=== PATIENT | female | born 1990 | race Caucasian/White ===

== ENCOUNTER 2017-01-05 20:00 | Inpatient (IN) | payer OTHER ==
[~2017-01-05] VITALS: Ht 167.6 cm; Wt 116.8 kg
[~2017-01-05 20:00] MED LIST: MOTRIN; VICODIN; [UNRECOGNIZED DRUG - REMARK]
[2017-01-05 20:39] VITALS: Ht 167.6 cm; Wt 116.8 kg
[2017-01-05] MEDS ORDERED: LIDOCAINE 1% (MPF) 30 ML INJ INJ PRN (21:00)
[2017-01-05] MEDS ORDERED: CARBOPROST 250 MCG INJ IM PRN (21:00)
[2017-01-05] MEDS ORDERED: OXYTOCIN 30 UNITS/LR 500 ML IV PRN (21:00)
[2017-01-05] MEDS ORDERED: METHYLERGONOVINE 0.2 MG INJ IM PRN (21:00)
[2017-01-05] MEDS ORDERED: LACTATED RINGER'S 1,000 ML IV PRN (21:00)
[2017-01-05] MEDS ORDERED: BUTORPHANOL 2 MG INJ IV PRN (21:00)
[2017-01-05] MEDS ORDERED: IBUPROFEN 600 MG TAB PO PRN (21:00)
[2017-01-05] MEDS ORDERED: MISOPROSTOL 200 MCG TAB PR PRN (21:00)
[2017-01-05 21:13] VITALS: BP 122/72; PULSE 91; RESP 18
[2017-01-05] MEDS ORDERED: AMPICILLIN 2 GM/NS (PMX) 100 ML ONE (21:22)
[2017-01-05] MEDS ORDERED: AMPICILLIN 2 GM/NS (PMX) 100 ML IV ONE (21:30)
[2017-01-05] MEDS ORDERED: DINOPROSTONE 10 MG VAG SUPP VAG ONE (21:30)
[2017-01-05] MEDS: LACTATED RINGER'S 1,000 ML IV SCH (21:39)
[2017-01-05 22:15] LABS: ADD SCAN DIFF NO
[2017-01-05 22:18] LABS: BASOPHILS % 0.2 % (0.0-2.0); EOSINOPHILS # 0.2 10^3/ul (0.0-0.5); EOSINOPHILS % 1.6 % (0.0-7.0); HEMATOCRIT 34.1 % (37.0-47.0); HEMOGLOBIN 11.3 g/dl (12.0-16.0); LYMPHOCYTES # 2.9 10^3/ul (0.8-2.9); LYMPHOCYTES % 22.1 % (15.0-51.0); MEAN CORPUSCULAR HGB CONC 33.1 g/dl (32.0-37.0); MEAN CORPUSCULAR VOLUME 84.4 fl (82.0-101.0); MEAN PLATELET VOLUME 11.1 fl (7.4-10.4); MONOCYTE # 0.9 10^3/ul (0.3-0.9); MONOCYTES % 6.6 % (0.0-11.0); NEUTROPHIL # 9.1 10^3/ul (1.6-7.5); NEUTROPHILS % 68.7 % (39.0-77.0); PLATELET COUNT 329 10^3/UL (140-415); RED BLOOD COUNT 4.04 10^6/ul (4.20-5.40); WHITE BLOOD COUNT 13.2 10^3/ul (4.8-10.8)
[2017-01-05 22:26] LABS: INR 0.86; PROTIME 11.7 Sec (12.2-14.2); PT RATIO 0.9
[2017-01-05 22:27] LABS: PARTIAL THROMBOPLASTIN TIME 30.9 Sec (25.0-35.0)
[2017-01-06] MEDS: AMPICILLIN 1 GM/NS (PMX) 50 ML IV SCH ×6 (02:29→22:41)
[2017-01-06] MEDS: LACTATED RINGER'S 1,000 ML IV SCH ×3 (06:00→22:41)
[2017-01-07] MEDS: OXYTOCIN 30 UNITS/LR 500 ML IV SCH (01:36)
[2017-01-07] MEDS: AMPICILLIN 1 GM/NS (PMX) 50 ML IV SCH ×2 (02:59→06:32)
[2017-01-07] MEDS: LACTATED RINGER'S 1,000 ML IV SCH ×3 (03:30→22:18)
[2017-01-07] MEDS ORDERED: DINOPROSTONE 10 MG VAG SUPP VAG ONE (08:30)
--- NOTE | 2017-01-07 10:44 | HP ---
Date/Time of Note Date/Time of Note DATE: 01/07/17 TIME: 10:34 OB - History Hx of Present Free Text/Dictation Patient was sent to labor and delivery for induction due to oligohydramnios, and small for gestational age, estimated weight 11 percentile, slightly increased S/D ratio of the umbilical artery Doppler with no, reverse diastolic or absent diastolic flow past OB history significant for Anti-M positive in initial labs. Repeat did not confirm no evidence of hydrops x2. care with Dr. Miles MARVIN: January 17, 2017 Patient currently had Cervidil for 12 hours. Cervix is still unfavorable. Chief Complaint: Patient was sent for induction due to oligohydramnios Estimated Due Date: January 17, 2017 : 1 Para: 0 Therapeutic : 0 Care: Good Care Ultrasounds: Other (Ultrasound consistent with small for gestational age. Estimated weight 11 percentile in the last ultrasound. Elevated with no evidence of reverse or abnormal diastolic flow. No evidence of hydrops. SD ratio of the umbilical artery Doppler, no evidence of hydrops no evidence of absent or reversed diastolic flow) Obstetrical Complications: Other (Small for gestational age, antibody screen initially was positive for anti-M repeat showed negative) Past Family/Social History * Past Medical, Surgical, Family and Obstetric Histories reviewed from chart. Blood Type: A+ GBS Status: Positive (In urine) HBsAG: Negative OB Admission Exam Vital Signs Vital Signs Vital Signs Date Time Temp Pulse Resp B/P Pulse Ox O2 Delivery O2 Flow Rate FiO2 01/05/17 21:13 97.5 91 18 122/72 Room Air Physical Exam HEENT: WNL Heart: Rhythm Normal Lungs: Clear Abdomen: WNL Extremities: Normal Cervical Dilatation: Fingertip Effacement: 0% Station: -3 Membranes: Intact Heart Rate: 130's Accelerations: Accelerations Present Decelerations: No Decelerations Varibility: Moderate Contractions on Admission: >10 Minutes Apart Intensity: Mild Last 72 hours Lab Results CBC & BMP 01/05/17 21:20 OB Assessment/Plan Other Assessment: IUP at 38 weeks and 4 days Oligohydramnios Small for gestational age Positive anti-IgM in initial lab repeats were negative 2, No evidence of hydrops Patient was sent by for induction due to oligohydramnios She had currently received 1 dose of Cytotec overnight. Cervix is is still unfavorable. Consider another Cytotec for the next 12 hours. Cytotec was placed inside the vagina continue monitoring closely Anticipate BERNARDO REY MD Jan 07, 2017 10:44
[2017-01-07 22:02] LABS: ADD UMIC NO; URINE BILIRUBIN (Dip) NEGATIVE (NEGATIVE); URINE BLOOD (Dip) NEGATIVE (NEGATIVE); URINE COLOR LT. YELLOW (YELLOW); URINE GLUCOSE (Dip) NEGATIVE (NEGATIVE); URINE KETONES (Dip) NEGATIVE (NEGATIVE); URINE LEUKOCYTE ESTERASE (Dip) NEGATIVE (NEGATIVE); URINE NITRITE (Dip) NEGATIVE (NEGATIVE); URINE TOTAL PROTEIN (Dip) NEGATIVE (NEGATIVE); URINE UROBILINOGEN (Dip) 0.2 E.U./dL (0.1-1.0)
[2017-01-07 22:58] LABS: ADD SCAN DIFF NO
[2017-01-07 23:00] LABS: BASOPHILS % 0.3 % (0.0-2.0); EOSINOPHILS # 0.2 10^3/ul (0.0-0.5); EOSINOPHILS % 1.4 % (0.0-7.0); HEMATOCRIT 32.2 % (37.0-47.0); HEMOGLOBIN 10.8 g/dl (12.0-16.0); LYMPHOCYTES # 2.7 10^3/ul (0.8-2.9); LYMPHOCYTES % 24.7 % (15.0-51.0); MEAN CORPUSCULAR HEMOGLOBIN 28.2 pg (29.0-33.0); MEAN CORPUSCULAR HGB CONC 33.5 g/dl (32.0-37.0); MEAN CORPUSCULAR VOLUME 84.1 fl (82.0-101.0); MEAN PLATELET VOLUME 10.8 fl (7.4-10.4); MONOCYTE # 0.9 10^3/ul (0.3-0.9); MONOCYTES % 7.8 % (0.0-11.0); NEUTROPHIL # 7.1 10^3/ul (1.6-7.5); NEUTROPHILS % 65.1 % (39.0-77.0); PLATELET COUNT 261 10^3/UL (140-415); RED BLOOD COUNT 3.83 10^6/ul (4.20-5.40); RED CELL DISTRIBUTION WIDTH 14.2 % (11.5-14.5)
[2017-01-07] MEDS ORDERED: OXYTOCIN 30 UNITS/LR 500 ML IVPB ONE (23:00)
[2017-01-07] MEDS ORDERED: OXYTOCIN 30 UNITS/LR 500 ML IV SCH (23:00)
[2017-01-07 23:12] LABS: INR 0.92; PROTIME 12.4 Sec (12.2-14.2)
[2017-01-07 23:13] LABS: PARTIAL THROMBOPLASTIN TIME 30.1 Sec (25.0-35.0)
[2017-01-07 23:21] LABS: ALBUMIN 2.9 g/dl (3.3-4.9); ALBUMIN/GLOBULIN RATIO 0.8; CALCIUM 9.5 mg/dl (8.4-10.2); CREATININE 0.51 mg/dl (0.44-1.00); POTASSIUM 3.7 mmol/L (3.5-5.1); TOTAL PROTEIN 6.5 g/dl (6.1-8.1)
[2017-01-08] MEDS: LACTATED RINGER'S 1,000 ML IV SCH ×5 (06:11→20:35)
[2017-01-08] MEDS: OXYTOCIN 30 UNITS/LR 500 ML IV SCH (14:20)
[2017-01-08] MEDS: AMPICILLIN 1 GM/NS (PMX) 50 ML IV SCH ×2 (14:25→18:28)
--- NOTE | 2017-01-08 20:10 | PN ---
Date/Time of Note Date/Time of Note DATE: 01/08/17 TIME: 20:04 OB Subjective Subjective Subjective she does not have complaints. she reports good FM. she denies LOF per vagina or vaginal bleeding. OB Objective Objective Objective VSS, AF Abdomen: soft, gravid, Not tender Cervix: 1 cm 30% -2 OB Assessment/Plan Other Assessment: 38.5 weeks who was seen by [facility] joyce and recommended to have IOL at 39 weeks due to inappropriate growth. she was found to have CORINA 5 cm and was sent to hospital for IOL, she did not make significant change Other plan: options to proceed with c/s Vs. AROM (although increased risk of chorioamnionitis) or repeat CORINA and if CORINA is OK then d/c home d/w pt. she wants to have sono done. she is aware that she needs to return for IOL in 2 days RAMEZ BRIGHT MD Jan 08, 2017 20:10
--- NOTE | 2017-01-08 20:55 | RADRPT ---
PROCEDURE: Obstetrical ultrasound greater than 14 weeks CLINICAL INDICATION: Pelvic pain TECHNIQUE: Real time sonographic imaging of the gravid uterus is performed transabdominally and mu ltiple static vegas scale and Doppler images are submitted for review as are measurements. The image s are reviewed on the PACS. COMPARISON: No relevant exams are available FINDINGS: There is a single living intrauterine gestation in cephalic presentation. The heart beat is estimated at 144 bpm. The measurements are as follows: BPD:8.83 cm HC:31.60 cm AC:33.82 cm FL:7.36 cm Estimated gestational age is 36 weeks 5 days. The estimated date of delivery is 01/31/2017. The estimated weight is 3145 grams. Placenta is fundal left and grade 2. There is no evidence of placenta previa or abruption. The amniotic fluid index is low estimated at 5.7 cm. RPTAT:HJJR IMPRESSION: 1. Single viable intrauterine gestation in cephalic presentation estimated at 36 weeks 5 days with t he estimated date of delivery 01/31/2017. 2. Oligohydramnios is of concern, the amniotic fluid index 5.7 cm. 3. Estimated weight 3145 g. 4. Left fundal placenta without abruption. Physician Moose Date Time Electronically viewed and signed by Physician Moose on 01/08/2017 20:55 /
--- NOTE | 2017-01-08 23:12 | DS ---
Date/Time of Note Date/Time of Note DATE: 01/08/17 TIME: 23:03 Obstetrical Discharge Record Final Diagnosis Final Diagnosis: Term not delivered Other Final Diagnosis who was admitted for IOL. she was seen by joyce for S<D. Perinatologist recommended IOL at 39 weeks. she was admitted at 38.3 weeks due to oligohydramnios. she is s/p 48 hours of Cervidil and 10 hours of Pitocin, her cervix is only one cm, she is very motivated to avoid c/s. she wants to go home and return for IOL in am. repeat CORINA is 5.7 cm, she reports good FM. she denies LOF per vagina or VB. Complications Other (Oligohydramnios and IUGR) Rupture of Membranes: No Condition on Discharge Physical Assessment Voiding: Yes Bowel Movement: Yes Breast: Soft, non-tender, Filling Fundus: Firm Abdomen and Incision: soft, gravid and not tender Calf Tenderness: No Patient Condition: Good Recommendation/Plan Follow-up/Disposition 38 weeks with IUGR and Oligohydramnios plan is to discharge her home and return for IOL in am RAMEZ BRIGHT MD Jan 08, 2017 23:12
[2017-01-09] MEDS ORDERED: PREN1TAB13 PO (15:58)
== END 2017-01-08 22:30 | disposition home or self-care (01) | DRG 782 ==
LOC: L-D 20:25
PROVIDERS: ADMIT Specialist; ATTEND Specialist
PROC: 3E0P7GC Introduction of Other Therapeutic Substance into Female Reproductive, Via Natural or Artificial Opening (ICD-10-PCS; principal; 2017-01-05 20:00)
DX: O41.03X0 Oligohydramnios, third trimester, not applicable or unspecified (principal); O36.5930 Maternal care for other known or suspected poor fetal growth, third trimester, not applicable or unspecified; Z3A.38 38 weeks gestation of pregnancy
CPT/HCPCS: 76815; 80053; 81003; 84560; 85025; 85362; 85384; 85610; 85730; 86592; 86885; 86900; 86901; 87340; J0290; J2590; J7120

== ENCOUNTER 2017-01-09 15:37 | Inpatient (IN) | payer OTHER ==
[~2017-01-09] VITALS: Ht 167.6 cm; Wt 117.3 kg
[2017-01-09 15:50] VITALS: Ht 167.6 cm; Wt 117.3 kg
[2017-01-09 15:55] VITALS: BP 135/81; PULSE 90; RESP 20
[2017-01-09] MEDS ORDERED: PREN1TAB13 PO (15:58)
[2017-01-09] MEDS ORDERED: OXYTOCIN 30 UNITS/LR 500 ML IV PRN (16:00)
[2017-01-09] MEDS ORDERED: METHYLERGONOVINE 0.2 MG INJ IM PRN (16:00)
[2017-01-09] MEDS ORDERED: MISOPROSTOL 200 MCG TAB PR PRN (16:00)
[2017-01-09] MEDS ORDERED: BUTORPHANOL 2 MG INJ IV PRN ×2 (16:00)
[2017-01-09] MEDS ORDERED: OXYTOCIN 30 UNITS/LR 500 ML IV SCH ×2 (16:00)
[2017-01-09] MEDS ORDERED: CARBOPROST 250 MCG INJ IM PRN (16:00)
[2017-01-09] MEDS ORDERED: IBUPROFEN 600 MG TAB PO PRN (16:00)
[2017-01-09] MEDS ORDERED: LIDOCAINE 1% (MPF) 30 ML INJ INJ PRN (16:00)
[2017-01-09] MEDS ORDERED: AMPICILLIN 2 GM/NS (PMX) 100 ML IVPB ONE (16:30)
[2017-01-09 16:33] LABS: ADD SCAN DIFF NO
[2017-01-09 16:37] LABS: BASOPHILS % 0.3 % (0.0-2.0); EOSINOPHILS # 0.2 10^3/ul (0.0-0.5); EOSINOPHILS % 1.4 % (0.0-7.0); HEMATOCRIT 34.8 % (37.0-47.0); HEMOGLOBIN 11.7 g/dl (12.0-16.0); LYMPHOCYTES # 2.3 10^3/ul (0.8-2.9); LYMPHOCYTES % 19.1 % (15.0-51.0); MEAN CORPUSCULAR HEMOGLOBIN 28.3 pg (29.0-33.0); MEAN CORPUSCULAR HGB CONC 33.6 g/dl (32.0-37.0); MEAN CORPUSCULAR VOLUME 84.1 fl (82.0-101.0); MEAN PLATELET VOLUME 11.4 fl (7.4-10.4); MONOCYTE # 0.7 10^3/ul (0.3-0.9); NEUTROPHIL # 8.6 10^3/ul (1.6-7.5); NEUTROPHILS % 72.4 % (39.0-77.0); PLATELET COUNT 302 10^3/UL (140-415); RED BLOOD COUNT 4.14 10^6/ul (4.20-5.40); RED CELL DISTRIBUTION WIDTH 13.9 % (11.5-14.5); WHITE BLOOD COUNT 11.8 10^3/ul (4.8-10.8)
[2017-01-09 16:57] LABS: INR 0.92; PARTIAL THROMBOPLASTIN TIME 30.4 Sec (25.0-35.0); PROTIME 12.4 Sec (12.2-14.2)
[2017-01-09] MEDS ORDERED: DINOPROSTONE 10 MG VAG SUPP VAG ONE (17:00)
[2017-01-09] MEDS ORDERED: LACTATED RINGER'S 1,000 ML IV PRN (18:00)
[2017-01-09] MEDS: AMPICILLIN 1 GM/NS (PMX) 50 ML IVPB SCH (21:24)
[2017-01-10] MEDS: LACTATED RINGER'S 1,000 ML IV SCH ×6 (00:38→18:38)
[2017-01-10] MEDS: AMPICILLIN 1 GM/NS (PMX) 50 ML IVPB SCH ×6 (01:13→20:22)
[2017-01-10] MEDS ORDERED: OXYTOCIN 30 UNITS/LR 500 ML IV SCH (08:30)
--- NOTE | 2017-01-10 08:35 | HP ---
Date/Time of Note Date/Time of Note DATE: 01/10/17 TIME: 08:31 OB - History Hx of Present Free Text/Dictation G1 IUP at 38.6 weeks with IUGR and Oligohydramnios, was recommended by joyce to have IOL. she was previously admitted to L&D and had 48 hours of Cervidil without progress. she was admitted last pm and had Cervidil for 12 hours. she is very motivated to avoid C/S. possible risks of chorioamnionitis with early AROM d/w pt, patient is requesting AROM. Obstetrical Complications: Other (IUGR and Oligo) Medical Complications: None Past Family/Social History * Past Medical, Surgical, Family and Obstetric Histories reviewed from chart. OB Admission Exam Vital Signs Vital Signs Vital Signs Date Time Temp Pulse Resp B/P Pulse Ox O2 Delivery O2 Flow Rate FiO2 01/09/17 15:55 98.5 90 20 135/81 Room Air Physical Exam HEENT: WNL Heart: Rhythm Normal Lungs: Clear, Equal Abdomen: WNL Extremities: Normal Reflexes: Normal Cervical Dilatation: 1cm Effacement: Other (30%) Station: -2 Membranes: Ruptured Amniotic Fluid: Clear Last 72 hours Lab Results CBC & BMP 01/09/17 16:08 OB Assessment/Plan Other Assessment: Admitted for IOL as above RAMEZ BRIGHT MD January 10, 2017 08:35
[2017-01-10] MEDS ORDERED: FENTAnyl 2MCG/ML-ROPIV 0.2% 100 ML ONE (13:42)
[2017-01-10] MEDS ORDERED: NALOXONE (0.4 MG/ML) INJ IV PRN ×2 (16:30→23:30)
[2017-01-10] MEDS ORDERED: FENTAnyl 2MCG/ML-ROPIV 0.2% 100 ML BAG EPI SCH (16:30)
[2017-01-10] MEDS ORDERED: TERBUTALINE 1 ML ONE (16:35)
[2017-01-10] MEDS ORDERED: TERBUTALINE 1 MG/ML INJ SC ONE (17:00)
[2017-01-10] MEDS ORDERED: CEFAZOLIN 2 GM/50 ML (PMX) 50 ML IVPB ONE (17:00)
[2017-01-10] MEDS ORDERED: LACTATED RINGER'S 1,000 ML IV SCH (21:19)
[2017-01-10] MEDS ORDERED: CARBOPROST 250 MCG INJ IM PRN (21:30)
[2017-01-10] MEDS ORDERED: CEFAZOLIN 2 GM/50 ML (PMX) 50 ML IV SCH (21:30)
[2017-01-10] MEDS ORDERED: MISOPROSTOL 200 MCG TAB PR PRN ×2 (21:30→23:30)
[2017-01-10] MEDS ORDERED: METHYLERGONOVINE 0.2 MG INJ IM PRN (21:30)
[2017-01-10] MEDS ORDERED: OXYTOCIN 30 UNITS/LR 500 ML IV PRN (21:30)
[2017-01-10] MEDS ORDERED: LIDOCAINE 2%/EPI 30 ML INJ ONE (22:16)
[2017-01-10] MEDS ORDERED: ONDANSETRON 4 MG INJ ONE (22:30)
[2017-01-10] MEDS ORDERED: DEXAMETHASONE 4 MG/ML 1 ML INJ ONE (22:30)
[2017-01-10] MEDS ORDERED: MIDAZOLAM 1 MG/ML 2 ML INJ ONE (22:48)
[2017-01-10] MEDS ORDERED: morphine SULFATE/PF (10 MG/10 ML) INJ ONE (22:55)
--- NOTE | 2017-01-10 23:21 | OPR ---
Operative Report Planned Procedure Free Text/Dictation DATE OF OPERATION: PREOPERATIVE DIAGNOSES: 1. Term 2. IUGR and Oligohydramnios 3. Failed IOL POSTOPERATIVE DIAGNOSES: 1. Same OPERATION PERFORMED: primary low transverse delivery SURGEON: Baldemar Eagle MD ROPE COILING MACHINE OPERATOR: MS JUDE MD ESTIMATED BLOOD LOSS: 700 mL. COMPLICATIONS: None. The risks, benefits, indications, alternatives of procedure including, but not limited to risk of infection, bleeding, damage to other organs, bowel, bladder, hernia formation, scar formation, possibility of blood transfusions discussed with patient. She was allowed to ask questions. All her questions were answered. Informed consent was obtained. DESCRIPTION OF PROCEDURE: She was taken to the operating room. Spinal anesthesia was induced. She was prepped and draped in the usual sterile fashion. Surgical time out one. Anesthesia was tested to be adequate. With permission from anesthesiologist, a knife was used to make a Pfannenstiel skin incision. The incision was taken down in layers. The fascia was cut, undermined and from the underlying muscle using sharp and blunt dissection. All the bleeders were cauterized. Peritoneum was entered bluntly. A low transverse incision was developed over the uterus. Amniotic fluid was clear and adequate. A viable in vertex presentation was delivered without any difficulty. The cord was clamped and cut, handed to awaiting team. Placenta was then delivered. Uterus was exteriorized, wrapped around a moist lap. Inside uterus was cleaned using a dry lap. All residual membranes were removed. The uterine incision was then closed using #1 Monocryl in 2 layers. The uterus was inserted back inside the abdominal cavity. Irrigation was done carefully. Careful evaluation of the uterine incision revealed no further bleeding. The tubal ligation sites were evaluated carefully. There was no bleeding. The peritoneum and rectus muscles and fascia were evaluated. All bleeders cauterized. Peritoneum was closed using 2-0 Monocryl. At this time, the count was correct. Rectus fascia was reapproximated using 2-0 Monocryl. Rectus fascia was closed using #1 Vicryl. Subcutaneous tissue was cleaned and irrigated. All bleeders cauterized and the skin closed using Insorb. All counts correct. Procedure date January 10, 2017 Anesthesia Type: epidural Procedure Description Under satisfactory [] anesthesia, the patient was prepped and draped and placed in a supine position, tilted to the left. Pfannenstiel incision was made, carried through the subcutaneous tissue. Bleeders brought under control with electrocautery. Fascia incised to the length of the incision. Rectus muscles from the fascia, divided midline. Peritoneum exposed, entered through a transverse incision. Exploration of abdomen revealed gravid uterus. Bladder flap was developed. Transverse incision was made in the lower segment of the uterus. Amniotic sac ruptured. [] amniotic fluid noted. [] Nasal oropharyngeal suction was performed. The baby was handed to the team for immediate attention. The placenta was delivered manually intact. Uterine cavity was cleaned with wet sponge and drainage established. Uterus closed in 2 layers using [] in continuous fashion. Peritoneal cavity irrigated with warm saline. Sponge, needle and instrument count reported to be correct. Abdominal peritoneum closed with [] continuously. Rectus muscle approximated with []. Fascia closed with [], and skin closed with donny. Estimated blood loss []mL. Urine bag contained []mL of urine Post-Procedure Findings: Live Baby [], Apgars [] and [], weight [], position [], [] presentation []cord. Physician Certification I, the undersigned physician, hereby certify that I have discussed the procedure described in this consent form with this patient (or the patient's legal client account representative), including: * The risk and benefits of the procedure; * Any adverse reactions that may reasonably be expected to occur; * Any alternative efficacious methods of treatment which may be medically viable ; * The potential problems that may occur during recuperation; * Potential for blood transfusion and associated risks/benefits; and * Any research or economic interest I may have regarding this treatment. I further certify that the patient/legally responsible person was encouraged to ask question and that all questions were answered. BALDEMAR EAGLE MD January 10, 2017 23:18
--- NOTE | 2017-01-10 23:25 | HP ---
Date/Time of Note Date/Time of Note DATE: 01/10/17 TIME: 23:22 OB - History Hx of Present Free Text/Dictation HISTORY OF PRESENT ILLNESS: The patient with failed IOL desires to proceed with c/s. I discussed with the patient the risks, benefits, indications, and alternatives of procedure including but not limited to risks of infection, bleeding, damage to other organs, bowel, bladder, hernia formation, scar formation, possibility of blood transfusion, possible need for emergency hysterectomy. She was allowed to ask questions. All her questions were answered. Informed consent has been obtained. Ultrasounds: Normal mid trimester US Obstetrical Complications: None Medical Complications: None Past Family/Social History * Past Medical, Surgical, Family and Obstetric Histories reviewed from chart. OB Admission Exam Vital Signs Vital Signs Vital Signs Date Time Temp Pulse Resp B/P Pulse Ox O2 Delivery O2 Flow Rate FiO2 01/09/17 15:55 98.5 90 20 135/81 Room Air Physical Exam HEENT: WNL Heart: Rhythm Normal Lungs: Clear, Equal Abdomen: WNL Extremities: Normal Reflexes: Normal Cervical Dilatation: 1cm Effacement: Other (60%) Station: -2 Last 72 hours Lab Results CBC & BMP 01/09/17 16:08 OB Assessment/Plan Other Assessment: failed IOL Plan: Section RAMEZ BRIGHT MD January 10, 2017 23:25
[2017-01-10 23:27] LABS: AADO2 Cord Arterial 70.5 mmHg; CBA Oxygen Sat 33.6 mmHG; CBA Total Hemglobin 15.5 g/dl; Fraction OxyHgb Cord Arterial 32.9 %; MODE ROOM AIR; Sample Type CBA
[2017-01-10 23:30] LABS: CBV COHb 1.3 %; CBV Oxygen Sat 58.6 mmHG; CBV Total Hemglobin 15.8 g/dl; Cord Blood Venous pO2 24.4 mmHG (15.0-45.0); MODE ROOM AIR; MetHgb Cord Venous 1.5 %; Sample Type CBV
[2017-01-10] MEDS ORDERED: ONDANSETRON 4 MG INJ IV PRN (23:30)
[2017-01-10] MEDS ORDERED: HYDROmorphONE 1 MG/ML SYG IV PRN ×2 (23:30)
[2017-01-10] MEDS ORDERED: NA PHOSPHATE/BIPHOS 133 ML ENEMA PR PRN (23:30)
[2017-01-10] MEDS ORDERED: LANOLIN 7 GM TUBE TOP PRN (23:30)
[2017-01-10] MEDS ORDERED: ZOLPIDEM 5 MG TAB PO PRN (23:30)
[2017-01-10] MEDS ORDERED: DIPHENHYDRAMINE 50 MG INJ IV PRN (23:30)
[2017-01-11 03:00] VITALS: BP 124/48; PULSE 72; RESP 18
[2017-01-11] MEDS: KETOROLAC 30 MG INJ IV PRN ×2 (05:41→15:52)
[2017-01-11] MEDS: LACTATED RINGER'S 1,000 ML IV SCH ×3 (07:06→15:44)
[2017-01-11 08:30] VITALS: BP 115/61; PULSE 69; RESP 18
[2017-01-11 08:32] LABS: ADD SCAN DIFF NO
[2017-01-11 08:43] LABS: BASOPHILS % 0.2 % (0.0-2.0); HEMATOCRIT 31.6 % (37.0-47.0); HEMOGLOBIN 10.4 g/dl (12.0-16.0); LYMPHOCYTES # 2.2 10^3/ul (0.8-2.9); LYMPHOCYTES % 13.8 % (15.0-51.0); MEAN CORPUSCULAR HGB CONC 32.9 g/dl (32.0-37.0); MEAN CORPUSCULAR VOLUME 85.2 fl (82.0-101.0); MEAN PLATELET VOLUME 11.2 fl (7.4-10.4); MONOCYTE # 0.8 10^3/ul (0.3-0.9); MONOCYTES % 4.9 % (0.0-11.0); NEUTROPHIL # 12.6 10^3/ul (1.6-7.5); NEUTROPHILS % 80.5 % (39.0-77.0); PLATELET COUNT 251 10^3/UL (140-415); RED BLOOD COUNT 3.71 10^6/ul (4.20-5.40); RED CELL DISTRIBUTION WIDTH 14.1 % (11.5-14.5); WHITE BLOOD COUNT 15.7 10^3/ul (4.8-10.8)
[2017-01-11] MEDS: MULTIVIT/MIN/FOLATE/IRON/PREN TAB PO SCH (09:21)
[2017-01-11] MEDS: SENNA/DOCUSATE NA (8.6MG/50MG) TAB PO SCH ×2 (09:22→21:15)
[2017-01-11 12:00] VITALS: BP 115/52; PULSE 75; RESP 18
[2017-01-11 16:09] VITALS: BP 129/66; PULSE 68; RESP 18
--- NOTE | 2017-01-11 18:23 | PN ---
Date/Time of Note Date/Time of Note DATE: 01/11/17 TIME: 18:21 OB Subjective Subjective Subjective Patient still is in bed. Not ambulating yet. Has Mckee catheter in. Breast- feeding. Passed flatus. Vaginal bleeding decrease. Denies any other complaint. Pain well controlled with p.o. pain medication. OB Objective Objective Objective General appearance: Alert and oriented 4 patient does not appear to be in any acute distress. Next Baby with mom mom breast-feeding, Breast: No evidence of mastitis, no erythema, no engorgement, no nipple lesion. Abdomen: Soft, obese appropriate tenderness in the incision., No evidence of erythema around the wound, no drainage, Wound: Clean dry and intact Extremities: No calf tenderness, no click, no edema, no cords palpable Hematology - 72 Hrs Test 01/09/17 16:08 01/11/17 07:55 White Blood Count 11.810^3/ul (4.8-10.8) H 15.710^3/ul (4.8-10.8) #H Red Blood Count 4.1410^6/ul (4.20-5.40) L 3.7110^6/ul (4.20-5.40) L Hemoglobin 11.7g/dl (12.0-16.0) L 10.4g/dl (12.0-16.0) L Hematocrit 34.8% (37.0-47.0) L 31.6% (37.0-47.0) L Mean Corpuscular Volume 84.1fl (82.0-101.0) 85.2fl (82.0-101.0) Mean Corpuscular Hemoglobin 28.3pg (29.0-33.0) L 28.0pg (29.0-33.0) L Mean Corpuscular Hemoglobin Concent 33.6g/dl (32.0-37.0) 32.9g/dl (32.0-37.0) Red Cell Distribution Width 13.9% (11.5-14.5) 14.1% (11.5-14.5) Platelet Count 00454^3/UL (140-415) 68333^3/UL (140-415) Mean Platelet Volume 11.4fl (7.4-10.4) H 11.2fl (7.4-10.4) H Neutrophils % 72.4% (39.0-77.0) 80.5% (39.0-77.0) H Lymphocytes % 19.1% (15.0-51.0) 13.8% (15.0-51.0) L Monocytes % 6.0% (0.0-11.0) 4.9% (0.0-11.0) Eosinophils % 1.4% (0.0-7.0) 0.0% (0.0-7.0) Basophils % 0.3% (0.0-2.0) 0.2% (0.0-2.0) Nucleated Red Blood Cells % 0.0/100WBC (0.0-0.0) 0.0/100WBC (0.0-0.0) Neutrophils # 8.610^3/ul (1.6-7.5) H 12.610^3/ul (1.6-7.5) H Lymphocytes # 2.310^3/ul (0.8-2.9) 2.210^3/ul (0.8-2.9) Monocytes # 0.710^3/ul (0.3-0.9) 0.810^3/ul (0.3-0.9) Eosinophils # 0.210^3/ul (0.0-0.5) 0.010^3/ul (0.0-0.5) Basophils # 0.010^3/ul (0.0-0.1) 0.010^3/ul (0.0-0.1) Nucleated Red Blood Cells # 0.010^3/ul (0.0-0.0) 0.010^3/ul (0.0-0.0) OB Assessment/Plan Other Assessment: Postoperative day #1 Status post section for oligohydramnios and IUGR Doing well Mild anemia, postop. Asymptomatic Plan: Expectant Management Other plan: Continue routine postop care BERNARDO REY MD January 11, 2017 18:23
[2017-01-11 20:00] VITALS: BP 120/69; PULSE 72; RESP 18
[2017-01-11] MEDS ORDERED: OXYCODONE/ACETAMINOPHEN (5/325) TAB PO PRN (23:30)
[2017-01-12] MEDS: OXYCODONE/ACETAMINOPHEN (5/325) TAB PO PRN ×4 (00:23→16:54)
[2017-01-12 03:35] VITALS: BP 120/64; PULSE 70; RESP 15
[2017-01-12] MEDS: IBUPROFEN 600 MG TAB PO SCH ×5 (05:37→23:45)
[2017-01-12] MEDS: SENNA/DOCUSATE NA (8.6MG/50MG) TAB PO SCH ×2 (08:22→20:40)
[2017-01-12] MEDS: MULTIVIT/MIN/FOLATE/IRON/PREN TAB PO SCH (08:22)
[2017-01-12 08:25] VITALS: BP 123/64; PULSE 74; RESP 18
[2017-01-12 16:00] VITALS: BP 114/72
--- NOTE | 2017-01-12 18:17 | PN ---
Date/Time of Note Date/Time of Note DATE: 01/12/17 TIME: 18:15 OB Subjective Subjective Subjective January 12, 2017 Hospital visit post day 2 Patient is doing well, Ambulatory She is afebrile Abdomen is soft , Fundus is firm Moderate amount of lochia Breasts are soft, Nipples are intact No calf tenderness Breast feeding the new born. Incision is healing well and is clean Current Medications Medications (Trade) Dose Ordered Sig/Jacqui Route PRN Reason Start Time Stop Time Status Last Admin Dose Admin Lactated Ringer's (Lr) 1,000 ml @ 125 mls/hr Q8H IV 01/09/17 15:58 01/10/17 21:39 DC 01/10/17 18:38 Butorphanol Tartrate (Stadol) 1 mg Q2H PRN IV PAIN 01/09/17 16:00 01/11/17 03:22 DC Butorphanol Tartrate (Stadol) 2 mg Q2H PRN IV PAIN 01/09/17 16:00 01/11/17 03:22 DC Lidocaine 30 ml 30 ml ONCE PRN INJ EPISIOTOMY/TEARING 01/09/17 16:00 Oxytocin/Lactated Ringer's 500 ml @ 125 mls/hr ONCE -MAY REPEAT X1 IV 01/09/17 16:00 01/11/17 03:22 DC 01/11/17 02:33 Oxytocin/Lactated Ringer's 500 ml @ 125 mls/hr ONCE IV 01/09/17 16:00 01/10/17 21:39 DC Ibuprofen 600 mg 600 mg ONCE PRN PO Mild Pain (Pain Score 1-3) 01/09/17 16:00 Lactated Ringer's 1,000 ml @ 2,000 mls/hr Q30M PRN IV PRE-EPIDURAL BOLUS 01/09/17 18:00 01/11/17 03:22 DC 01/10/17 13:19 Oxytocin/Lactated Ringer's 500 ml @ 0 mls/hr ONCE PRN IV For Hemorrhage Management 01/09/17 16:00 01/10/17 21:39 DC Methylergonovine Maleate (Methergine) 0.2 mg ONCE PRN IM VAGINAL BLEEDING 01/09/17 16:00 01/10/17 21:39 DC Carboprost Tromethamine (Hemabate) 250 mcg ONCE PRN IM VAGINAL BLEEDING 01/09/17 16:00 01/10/17 21:39 DC Misoprostol 1000 mcg 1,000 mcg ONCE PRN [place] VAGINAL BLEEDING 01/09/17 16:00 01/10/17 21:39 DC Ampicillin 100 ml @ 100 mls/hr ONCE ONCE IVPB 01/09/17 16:30 01/09/17 17:29 DC 01/09/17 16:39 Ampicillin (Ampicillin 1 Gm/ NS (Pmx)) 50 ml @ 100 mls/hr Q4 IVPB 01/09/17 21:00 01/11/17 03:20 DC 01/10/17 20:22 Dinoprostone 10 mg 10 mg ONCE ONCE VAG 01/09/17 17:00 01/09/17 17:01 DC 01/09/17 17:16 Oxytocin/Lactated Ringer's 500 ml @ 0 mls/hr TITRATE IV 01/10/17 08:30 01/11/17 03:21 DC 01/10/17 08:35 Fentanyl/ Ropivacaine 100 ml @ ud STK-MED ONCE .ROUTE 01/10/17 13:42 01/10/17 13:43 DC Naloxone HCl (Narcan) 0.2 mg Q2M PRN IV FOR RESP RATE 8 OR LESS 01/10/17 16:30 Fentanyl/ Ropivacaine 100 ml 100 ml EPIDURAL (PCEA) EPI 01/10/17 16:30 01/11/17 03:21 DC Terbutaline Sulfate 1 ml @ ud STK-MED ONCE .ROUTE 01/10/17 16:35 01/10/17 16:36 DC Cefazolin Sodium/ Dextrose (Ancef 2 Gm/50 ml (Pmx)) 50 ml @ 100 mls/hr ONCE ONCE IVPB 01/10/17 17:00 01/10/17 17:29 DC Terbutaline Sulfate 0.25 mg 0.25 mg ONCE ONCE SC 01/10/17 17:00 01/10/17 17:01 DC 01/10/17 16:52 Lactated Ringer's 1,000 ml @ 125 mls/hr Q8H IV 01/10/17 21:19 01/11/17 03:21 DC Cefazolin Sodium/ Dextrose 50 ml @ 100 mls/hr ONCE IV 01/10/17 21:30 01/11/17 03:21 DC Oxytocin/Lactated Ringer's 500 ml @ 0 mls/hr ONCE PRN IV For Hemorrhage Management 01/10/17 21:30 01/11/17 03:21 DC Methylergonovine Maleate (Methergine) 0.2 mg ONCE PRN IM VAGINAL BLEEDING 01/10/17 21:30 Carboprost Tromethamine (Hemabate) 250 mcg ONCE PRN IM VAGINAL BLEEDING 01/10/17 21:30 01/11/17 03:21 DC Misoprostol (Cytotec) 1,000 mcg ONCE PRN [place] VAGINAL BLEEDING 01/10/17 21:30 Lidocaine/ Epinephrine (Xylocaine 2%/ Epi) 30 ml STK-MED ONCE .ROUTE 01/10/17 22:16 01/10/17 22:17 DC Ondansetron HCl (Zofran Inj) 4 mg STK-MED ONCE .ROUTE 01/10/17 22:30 01/10/17 22:31 DC Dexamethasone (Decadron) 4 mg STK-MED ONCE .ROUTE 01/10/17 22:30 01/10/17 22:31 DC Midazolam HCl (Versed) 2 mg STK-MED ONCE .ROUTE 01/10/17 22:48 01/10/17 22:49 DC Morphine Sulfate 10 mg 10 mg STK-MED ONCE .ROUTE 01/10/17 22:55 01/10/17 22:56 DC Lactated Ringer's (Lr) 1,000 ml @ 125 mls/hr Q8H IV 01/10/17 23:06 01/12/17 06:34 DC 01/11/17 15:44 Oxycodone/ Acetaminophen (Percocet (5/ 325)) 1 tab Q4H PRN PO PAIN LEVEL 4-6 01/11/17 23:30 Oxycodone/ Acetaminophen (Percocet (5/ 325)) 2 tab Q4H PRN PO PAIN LEVEL 7-10 01/11/17 23:30 01/12/17 16:54 Ibuprofen (Motrin) 600 mg Q6 PO 01/12/17 00:00 01/12/17 17:51 Simethicone (Mylicon) 160 mg Q8H PRN PO DISTENSION/GAS/BLOATING 01/10/17 23:30 01/11/17 09:22 Senna/Docusate Sodium (Senokot-S) 1 tab BID PO 01/11/17 09:00 01/12/17 08:22 Sodium Biphosphate/ Sodium Phosphate (Fleet Enema) 133 ml DAILY PRN [place] CONSTIPATION 01/10/17 23:30 Lanolin (Vaq-O-Zplpwc) 1 applic BEDSIDE MEDICATION PRN TOP BEDSIDE FOR ALICE TO NIPPLES 01/10/17 23:30 01/11/17 05:42 Diphtheria/ Tetanus/Acell Pertussis (Adacel) 0.5 ml ONCE ONCE IM* 01/13/17 09:00 01/13/17 09:01 Measles/Mumps/ Rubella Vaccine Live (Mmr Ii Vaccine) 0.5 ml ONCE ONCE SC* 01/13/17 09:00 01/13/17 09:01 Misoprostol (Cytotec) 1,000 mcg ONCE PRN [place] VAGINAL BLEEDING 01/10/17 23:30 Naloxone HCl (Narcan) 0.1 mg Q2M PRN IV FOR RESP RATE 8 OR LESS 01/10/17 23:30 01/11/17 23:29 DC Ketorolac Tromethamine (Toradol) 30 mg Q6H PRN IV PAIN 01/10/17 23:30 01/11/17 23:29 DC 01/11/17 15:52 Hydromorphone HCl (Dilaudid) 0.2 mg Q3H PRN IV PAIN LEVEL 1-5 01/10/17 23:30 01/11/17 23:29 DC Hydromorphone HCl (Dilaudid) 0.4 mg Q3H PRN IV PAIN LEVEL 6-10 01/10/17 23:30 01/11/17 23:29 DC 01/11/17 18:55 Diphenhydramine HCl (Benadryl) 25 mg Q6H PRN IV ITCHING 01/10/17 23:30 01/11/17 23:29 DC Ondansetron HCl (Zofran Inj) 4 mg Q6H PRN IV NAUSEA AND/OR VOMITING 01/10/17 23:30 01/11/17 23:29 DC Zolpidem Tartrate (Ambien) 5 mg HS MAY REPEAT X 1 PRN PO INSOMNIA 01/10/17 23:30 01/11/17 23:29 DC Prenat Multivit/ Mastercam Programmer/Iron/Folic Ac ( S) 1 tab DAILY PO 01/11/17 09:00 01/12/17 08:22 If afebrile and no other problem she will be discharged home tomorrow JOSEPHINE WHALEN MD January 12, 2017 18:17
[2017-01-12 19:40] VITALS: BP 136/80; PULSE 79; RESP 20
[2017-01-13] MEDS: OXYCODONE/ACETAMINOPHEN (5/325) TAB PO PRN ×4 (01:58→21:23)
[2017-01-13 03:50] VITALS: BP 126/60; PULSE 69; RESP 18
[2017-01-13] MEDS: IBUPROFEN 600 MG TAB PO SCH ×3 (05:44→18:13)
[2017-01-13 08:45] VITALS: BP 118/64; PULSE 73; RESP 16
[2017-01-13] MEDS ORDERED: DIPHTH/TET/ACEL PERTUSS (ADULT) 0.5 ML VIAL IM* ONE (09:00)
[2017-01-13] MEDS ORDERED: MEASLES,MUMPS,RUBELLA VACCINE INJ SC* ONE (09:00)
[2017-01-13] MEDS: SENNA/DOCUSATE NA (8.6MG/50MG) TAB PO SCH ×2 (09:45→21:23)
[2017-01-13] MEDS: MULTIVIT/MIN/FOLATE/IRON/PREN TAB PO SCH (09:45)
[2017-01-13 15:45] VITALS: BP 117/71; PULSE 74; RESP 18
--- NOTE | 2017-01-13 16:40 | QN ---
Documentation Comment POD#3 is stable afebrile tolerates diet No VB +BM +voids Vs stable Gen NAD Abd soft NT ND Incision intact Genitalia No blood at perinium --->PMD decided to discharge her tomorrow -->Ambulation MIKAELA MCLAUGHLIN M.D. January 13, 2017 16:40
[2017-01-13 20:20] VITALS: BP 121/89; PULSE 68; RESP 20
[2017-01-14] MEDS: IBUPROFEN 600 MG TAB PO SCH ×3 (00:27→12:00)
[2017-01-14] MEDS: OXYCODONE/ACETAMINOPHEN (5/325) TAB PO PRN ×2 (01:29→11:09)
[2017-01-14 04:30] VITALS: BP 123/67; PULSE 74; RESP 20
[2017-01-14] MEDS: MULTIVIT/MIN/FOLATE/IRON/PREN TAB PO SCH (08:24)
[2017-01-14] MEDS: SENNA/DOCUSATE NA (8.6MG/50MG) TAB PO SCH (08:25)
[2017-01-14 08:30] VITALS: BP 129/74; PULSE 76; RESP 18
--- NOTE | 2017-01-14 09:40 | PD.PPDC ---
QUILL[facility] Discharge Instruction Diagnosis Final Diagnosis: 1) s/p Primary Low Transverse Section; 2)IUGR/Oligo; 3)Failed IOL Condition Patient Condition: Good Diet Diet: Resume Regular Diet Activity/Restrictions Activity: Normal Activity May Shower Restrictions: No Exercising No Lifting No Driving No Sexual Activity Nothing in the Vagina No [place] No Tampons, douche Wound/Drain Care Instructions Wound/Drain Care Instructions: Wash with soap and water Keep clean and dry Follow-up Follow-up with Physician: 2, Week/Weeks Return to clinic for CUPROUS CHLORIDE HELPER Instructions: Fever greater than 101 Chills Worsening abdominal pain Excessive Vaginal Bleeding More than 2 pads per hour Unable to tolerate diet OB Instructions: Breast Tenderness Depression Blurried Vision Headache Surgical Instructions: Incisional Drainage Incisional Redness MATTHEW KAMINSKI MD January 14, 2017 09:40
[2017-01-14] MEDS ORDERED: SENN-88 PO (09:43)
[2017-01-14] MEDS ORDERED: IBUP-1542 PO (09:43)
--- NOTE | 2017-01-14 09:45 | DS ---
Date/Time of Note Date/Time of Note DATE: 01/14/17 TIME: 09:44 Obstetrical Discharge Record Final Diagnosis Final Diagnosis: Term delivered Section Section: Primary Primary Indication Failed IOL in the setting of Oligo/IUGR Complications Other (IUGR/Oligohydramnios) Induction: Yes Rupture of Membranes: No Condition on Discharge Physical Assessment Last Vitals: VS 97.9 123/67 74 20 Admission Hgb 11.7-> EBL 700ml -> POD#1 Hgb 10.4 Voiding: Yes Bowel Movement: Yes Breast: Filling Fundus: Firm Abdomen and Incision: Abd soft, appropriately TTP, NABS, Incision intact, no e/o separation or infection Calf Tenderness: No Patient Condition: Good MATTHEW KAMINSKI MD January 14, 2017 09:45
== END 2017-01-14 12:20 | disposition home or self-care (01) | DRG 765 ==
LOC: L-D 15:37 → PP1 01-11 02:59 → EDSTATUS 01-17 15:36
PROVIDERS: ADMIT Specialist; ATTEND Specialist
PROC: 10D00Z1 Extraction of Products of Conception, Low, Open Approach (ICD-10-PCS; principal; 2017-01-10 22:00)
PROC: 3E00X4Z Introduction of Serum, Toxoid and Vaccine into Skin and Mucous Membranes, External Approach (ICD-10-PCS; 2017-01-13)
DX: O41.03X0 Oligohydramnios, third trimester, not applicable or unspecified (principal); Z68.41 Body mass index [BMI] 40.0-44.9, adult; O99.214 Obesity complicating childbirth; Z23 Encounter for immunization; Z3A.38 38 weeks gestation of pregnancy; Z37.0 Single live birth
CPT/HCPCS: 36415; 36600; 62319; 82803; 85025; 85610; 85730; 86592; 86850; 86870; 86900; 86901; 90715; 94760; 99464; J0290; J0690; J1100; J1170; J1885; J2250; J2274; J2405; J2590; J3010; J3105; J7120